=== PATIENT | male | born 1980 | race Caucasian/White ===

== ENCOUNTER 2017-07-29 13:18 | Emergency (ER) | payer OTHER, MEDICARE ==
[~2017-07-29] VITALS: Ht 182.9 cm; Wt 72.6 kg
[~2017-07-29 13:18] MED LIST: AMBIEN 10MG10 MG PO; ATENOLOL25 MG PO; BENZTROPINE1 MG PO; CLOZAPINE100 MG PO; IBUPROFEN600 M1 PO; KEFLEX500 MG PO; LAMICTAL200 MG PO; LEVOTHYROXINE0.05 MG PO; LITHIUM CARBON450 MG PO
--- NOTE | 2017-07-29 14:15 | ED UPPER/LOWER EXTREMITY COMPL ---
History of Present Illness General Chief Complaint: Foot or Ankle Injury Stated Complaint: RT ANKLE PAIN Source: patient Exam Limitations: no limitations Vital Signs & Intake/Output Vital Signs & Intake/Output Vital Signs Date Time Temp Pulse Resp B/P B/P Pulse O2 O2 Flow FiO2 Mean Ox Delivery Rate 07/29 1420 Room Air Room Air 07/29 1329 97.2 111 18 148/90 99 Room Air Allergies Coded Allergies: No Known Drug Allergies (Intermediate, NONE 07/29/17) tomato (HUNTS TOMATO SAUCE 07/26/15) Reconcile Medications Atenolol 25 MG TAB 1 TAB PO DAILY HEART (Reported) Benztropine Mesylate (Benztropine) 1 MG TAB 1 TAB PO BID UNKNOWN (Reported) Cephalexin (Keflex) 500 MG CAP 1 TAB PO TID CELLULITIS Clozapine 100 MG TAB 1.5 TAB PO BID MENTAL HEALTH (Reported) Ibuprofen 600 MG TABLET 1 TAB PO TID PRN PAIN with food Lamotrigine (Lamictal) 200 MG TAB 1 TAB PO BID MENTAL HEALTH (Reported) Levothyroxine Sodium 0.05 MG TAB 0.05 MG PO DAILY AC THYROID (Reported) Centereach Carbonate (Centereach Carbonate ER) [address] 1 TAB PO BID MENTAL HEALTH (Reported) Meloxicam (Mobic) 15 MG TABLET 1 TAB PO DAILY PRN PAIN Zolpidem Tartrate (Ambien 10MG) 10 MG TAB 1 TAB PO QPM SLEEP (Reported) Triage Note: C/O R ANKLE PAIN SINCE YESTERDAY, (LATERAL AREA) STATES HIS ANKLE "GAVE OUT" WHILE WALKING DOG YESTERDAY, Triage Nurses Notes Reviewed? yes Onset: Gradual Duration: constant Timing: recent history Severity: severe Severity Numbers: 7 HPI: Patient is a 36-year-old male presents emergency room seen yesterday patient while walking his dog ambulating tripped and twisted his right ankle and foot resulting acute onset of pain and swelling. Patient applied ice to the region however no medications given. Denies any knee pain denies any laceration or bleeding. States that ambulation and palpation makes worse. (Harish BLAKELY,Dwain) Past History Travel History Traveled to [place] past 21 day No Medical History Any Pertinent Medical History? see below for history Neurological: NONE EENT: NONE Cardiovascular: NONE Respiratory: NONE Gastrointestinal: NONE Hepatic: NONE Renal: NONE Musculoskeletal: NONE Psychiatric: anxiety Endocrine: NONE Blood Disorders: NONE Cancer(s): NONE DOCTOR CHIROPRACTIC/Reproductive: NONE Tetanus Vaccine: 04/27/15 Surgical History Surgical History: non-contributory, N Psychosocial History What is your primary language Ivorian Tobacco Use: Never used ETOH Use: denies use Family History Hx Contributory? No (Dwain Pennington) Review of Systems Review of Systems Constitutional: Reports: no symptoms. EENTM: Reports: no symptoms. Respiratory: Reports: no symptoms. Cardiovascular: Reports: no symptoms. Gastrointestinal/Abdominal: Reports: no symptoms. Genitourinary: Reports: no symptoms. Musculoskeletal: Reports: see HPI, joint pain, joint swelling. Skin: Reports: no symptoms. Neurological/Psychological: Reports: no symptoms. Hematologic/Endocrine: Reports: no symptoms. Immunological: Reports: no symptoms. All Other Systems: Reviewed and Negative (Dwain Pennington) Physical Exam Physical Exam General Appearance: no apparent distress, alert, comfortable Head: atraumatic Eyes: Bilateral: normal appearance. Ears, Nose, Throat: hearing grossly normal Neck: normal inspection Peripheral Pulses: 2+ dorsalis pedis (R) Neurologic/Tendon: normal sensation, normal motor functions, normal tendon functions, responds to pain, no evidence tendon injury Skin: intact Comments: Right knee normal inspection nontender full active range of motion Right ankle noted lateral malleoli point tenderness and decreased active range of motion Right foot noted lateral dorsal point tenderness and swelling. Pulses +2 (Dwain Pennington) Progress Differential Diagnosis: arterial insufficiency, compartment syndrome, contusion, dislocation, DVT, fracture, gout, septic arthritis, sprain, tendon injury Plan of Care: Orders Procedure Date/time Status Durable Medical Equipment 07/29 1416 Active Patient was neurovascularly intact to right lower extremity x-ray showed no concerns of osseous injury. Abdulkadir wrap and ankle stirrup were applied pre-and post-neurovascular was intact patient will be treated for concerns of ankle sprain Diagnostic Imaging: Viewed by Me: Radiology Read. Radiology Impression: no fracture Comments: PATIENT: ZORAN WARE PRESENT AGE: 36 PATIENT ACCOUNT NO: [id number] : 82 LOCATION: [facility] ORDERING PHYSICIAN: Dillan BLAKELY SERVICE DATE: 07/29/17 EXAM TYPE: RAD - XRY-ANKLE 3 OR MORE VIEWS R; XRY-FOOT COMPLETE, R EXAMINATION: XR FOOT, RIGHT XR ANKLE, RIGHT CLINICAL INFORMATION: Right foot and ankle pain. COMPARISON: None. TECHNIQUE: 3 views of the right foot and 3 views of the right ankle were obtained. FINDINGS: Right Foot: The bony alignment is intact. The cortices are intact. The articular margins, joint spaces appear unremarkable. The soft tissues are unremarkable. Right Ankle: Significant soft tissue swelling is noted overlying the lateral malleolus without any underlying fracture and/or dislocation. The joint space is well maintained. Mild osteophyte formation is noted at the medial malleolar region, consistent with mild medial osteoarthrosis. IMPRESSION: 1. No radiographic evidence of any acute fracture and/or dislocation or subluxation is noted within the right foot. 2. 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 3. Significant soft tissue swelling overlying the right lateral malleolus without any underlying fracture or dislocation or subluxation. DICTATED BY: Kurt Tellez MD DATE/TIME DICTATED:07/29/171438 TRUST VAULT CUSTODIAN:LUIS A DATE/TIME TRANSCRIBED:07/29/17 (Dwain Pennington) Departure Departure Disposition: HOME OR SELF CARE Condition: Stable Clinical Impression Primary Impression: Right ankle sprain Referrals: Pako Rolle MD (PCP/Family) Fredrick Kenny MD Additional Instructions: As discussed begin elevating the foot for swelling begin using the crutches until you can walk without pain. begin applying ice to the area 20 minutes every 2 hours. Begin the prescription meloxicam for pain and inflammation, if no better in 5 days follow-up with orthopedic Dr. Kenny. If symptoms worsen return to emergency room. Begin using the Abdulkadir wrap and Aircast stirrup for support instability. Prescriptions waiting at [facility] Departure Forms: Customer Survey General Discharge Information Prescriptions: Current Visit Scripts Meloxicam (Mobic) 1 TAB PO DAILY PRN PAIN #10 TAB (Dwain Pennington) PA/BUFF WHEEL FABRICATOR Co-Sign Statement Statement: ED Attending supervision documentation- I saw and evaluated the patient. I have also reviewed all the pertinent lab results and diagnostic results. I agree with the findings and the plan of care as documented in the PA's/BUFF WHEEL FABRICATOR's documentation. x I have reviewed the ED Record and agree with the PA's/BUFF WHEEL FABRICATOR's documentation. [] Additions or exceptions (if any) to the PAs/BUFF WHEEL FABRICATOR's note and plan are summarized below: [] (Phu PARKER,Hernan)
[2017-07-29] MEDS ORDERED: MOBIC15 M1 PO (14:20)
--- NOTE | 2017-07-29 14:57 | RADIOLOGY REPORT ---
EXAMINATION: XR FOOT, RIGHT XR ANKLE, RIGHT CLINICAL INFORMATION: Right foot and ankle pain. COMPARISON: None. TECHNIQUE: 3 views of the right foot and 3 views of the right ankle were obtained. FINDINGS: Right Foot: The bony alignment is intact. The cortices are intact. The articular margins, joint spaces appear unremarkable. The soft tissues are unremarkable. Right Ankle: Significant soft tissue swelling is noted overlying the lateral malleolus without any underlying fracture and/or dislocation. The joint space is well maintained. Mild osteophyte formation is noted at the medial malleolar region, consistent with mild medial osteoarthrosis. IMPRESSION: 1. No radiographic evidence of any acute fracture and/or dislocation or subluxation is noted within the right foot. 2. 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 3. Significant soft tissue swelling overlying the right lateral malleolus without any underlying fracture or dislocation or subluxation.
[2017-07-29 15:17] VITALS: BP 145/85
== END 2017-07-29 15:18 ==
LOC: ERH 13:18
DX: S93.401A Sprain of unspecified ligament of right ankle, initial encounter (principal); W18.09XA Striking against other object with subsequent fall, initial encounter; Y93.K1 Activity, walking an animal; Y92.9 Unspecified place or not applicable
CPT/HCPCS: 73610-RT; 73630-RT